=== PATIENT | male | born 1960 | race Hispanic/Latino ===

== ENCOUNTER 2017-07-19 14:29 | Emergency (ER) | payer OTHER ==
[~2017-07-19] VITALS: Ht 170.2 cm; Wt 81.6 kg
[~2017-07-19 14:29] MED LIST: BACTRIM DS TAB1 EACH PO
[2017-07-19] MEDS ORDERED: CEFAZOLIN SOD 1 GM VIAL IM STA (17:50)
[2017-07-19 19:45] VITALS: BP 158/75
== END 2017-07-19 19:46 | disposition home or self-care (01) ==
LOC: ER 14:29
DX: M79.651 Pain in right thigh (principal); L03.115 Cellulitis of right lower limb; I10 Essential (primary) hypertension; E11.9 Type 2 diabetes mellitus without complications; J98.4 Other disorders of lung; N28.9 Disorder of kidney and ureter, unspecified
CPT/HCPCS: 93005; 99284; J0690